=== PATIENT | female | born 1975 | race Caucasian/White ===

== ENCOUNTER 2022-02-19 03:59 | Inpatient (IN) | payer MEDICAID ==
[~2022-02-19] VITALS: Ht 160 cm; Wt 65.3 kg
[2022-02-19 05:09] LABS: BASOPHILS % 0.6 % (0.0-2.0); EOSINOPHILS % 0.7 % (0.0-5.0); HEMATOCRIT. 42.8 % (36.0-48.0); HEMOGLOBIN. 14.2 g/dL (12.0-16.0); MEAN CORPUSCULAR HEMOGLOBIN 29.2 pg (28.0-32.0); MEAN CORPUSCULAR VOLUME 87.8 fL (81.0-99.0); MEAN PLATELET VOLUME 8.5 fl (7.4-10.4); MONOCYTES % 6.6 % (2.0-8.0); NEUTROPHILS % 76.1 % (40.0-76.0); PLATELET 224 x1000/uL (130-400); RED BLOOD CELL COUNT 4.88 mill/uL (4.2-5.4); RED CELL DISTRIBUTION WIDTH 14.4 % (11.6-14.6)
[2022-02-19 05:21] LABS: CHLORIDE 101 mEq/L (98-107)
[2022-02-19 05:36] LABS: ETHANOL BLOOD < 10 mg/dL
[2022-02-19] MEDS ORDERED: ACETAMINOPHEN 325MG TABLET PO STA (05:54)
[2022-02-19 06:44] LABS: CLARITY URINE CLEAR (CLEAR); COLOR URINE YELLOW (YELLOW); KETONES URINE NEGATIVE (NEGATIVE); LEUKOCYTE ESTERASE URINE NEGATIVE (NEGATIVE); NITRITE URINE NEGATIVE (NEGATIVE); OCCULT BLOOD URINE 1+ (NEGATIVE); PH URINE 5.5 (4.5-8.0); PROTEIN URINE TRACE (NEGATIVE); SPECIFIC GRAVITY URINE 1.018 (1.005-1.030); UROBILINOGEN URINE 0.2 E.U./dL (0.2-1.0)
[2022-02-19] MEDS ORDERED: LEVETIRACETAM 1000MG PREMIX 100 ML IV ONE (07:30)
[2022-02-19 08:06] LABS: *AMPHETAMINES SCREEN URINE NEGATIVE (NEGATIVE); *BARBITURATES SCREEN URINE NEGATIVE (NEGATIVE); *BENZODIAZEPINES SCREEN URINE NEGATIVE (NEGATIVE); *COCAINE SCREEN URINE NEGATIVE (NEGATIVE); CANNABINOID URINE SCREEN NEGATIVE (NEGATIVE); METHADONE URINE SCREEN NEGATIVE (NEGATIVE); OPIATES URINE SCREEN NEGATIVE (NEGATIVE); PHENCYCLIDINE URINE SCREEN NEGATIVE (NEGATIVE)
[2022-02-19] MEDS ORDERED: ONDANSETRON HCL 4MG/2ML INJ IV ONE (08:15)
[2022-02-19] MEDS ORDERED: ONDANSETRON HCL 4MG/2ML INJ IV PRN (11:45)
[2022-02-19] MEDS ORDERED: CLONIDINE 0.1MG TABLET PO PRN (11:45)
[2022-02-19] MEDS ORDERED: MAGNESIUM/ALUMINUM HYDROXIDE/SIMETHICONE 30ML UDC PO PRN (11:45)
[2022-02-19] MEDS ORDERED: IPRATROPIUM/ALBUTEROL 0.5-3(2.5)MG/3ML NEB NEB PRN (11:45)
[2022-02-19] MEDS ORDERED: ACETAMINOPHEN 325MG TABLET PO PRN (11:45)
[2022-02-19] MEDS ORDERED: GUAIFENESIN 200MG/10ML SUGAR FREE UDC PO PRN (11:45)
[2022-02-19] MEDS ORDERED: NA PHOS,M-B/NA PHOS,DI-BA ENEMA 118ML PR PRN (11:45)
[2022-02-19] MEDS ORDERED: DIPHENHYDRAMINE 50MG/ML VIAL IV PRN (11:45)
[2022-02-19] MEDS ORDERED: DOCUSATE SODIUM 100MG CAPSULE PO PRN (11:45)
[2022-02-19] MEDS ORDERED: NALOXONE HCL 0.4MG/ML VIAL IV PRN (12:15)
[2022-02-19 13:00] VITALS: BP 123/71
[2022-02-19] MEDS: HYDROCODONE/ACETAMINOPHEN 5/325MG TABLET PO PRN ×2 (15:56→21:00)
[2022-02-19 16:00] VITALS: BP 116/66
[2022-02-19 19:08] LABS: CHLORIDE 103 mEq/L (98-107)
[2022-02-19 20:00] VITALS: BP 143/87
[2022-02-19] MEDS: LEVETIRACETAM 500MG TABLET PO SCH (21:00)
[2022-02-20] VITALS: BP 134/66
[2022-02-20 04:00] VITALS: BP 106/63
[2022-02-20 07:05] LABS: BASOPHILS % 0.6 % (0.0-2.0); EOSINOPHILS % 0.4 % (0.0-5.0); HEMATOCRIT. 40.6 % (36.0-48.0); HEMOGLOBIN. 13.9 g/dL (12.0-16.0); LYMPHOCYTES % 19.7 % (20.0-50.0); MEAN CORPUSCULAR HEMOGLOBIN 29.8 pg (28.0-32.0); MEAN CORPUSCULAR VOLUME 86.9 fL (81.0-99.0); MEAN PLATELET VOLUME 8.6 fl (7.4-10.4); MONOCYTES % 7.2 % (2.0-8.0); NEUTROPHILS % 72.1 % (40.0-76.0); PLATELET 161 x1000/uL (130-400); RED BLOOD CELL COUNT 4.67 mill/uL (4.2-5.4); RED CELL DISTRIBUTION WIDTH 14.3 % (11.6-14.6)
[2022-02-20 08:04] VITALS: BP 125/84
[2022-02-20] MEDS: LEVETIRACETAM 500MG TABLET PO SCH ×2 (08:58→20:21)
[2022-02-20] MEDS: MORPHINE SULFATE 2 MG/ML CPJ (NOT FOR IM USE) IV PRN ×2 (09:06→20:23)
[2022-02-20 12:04] VITALS: BP 115/75
[2022-02-20 16:00] VITALS: BP 125/66
[2022-02-20] MEDS ORDERED: GADOTERATE MEGLUMINE 5 MMOL/10 ML VIAL IV ONE (16:59)
[2022-02-20 20:00] VITALS: BP 129/86
[2022-02-21] VITALS: BP 130/70
[2022-02-21 04:00] VITALS: BP 125/82
[2022-02-21 06:35] LABS: BASOPHILS % 0.6 % (0.0-2.0); EOSINOPHILS % 2.6 % (0.0-5.0); HEMATOCRIT. 42.9 % (36.0-48.0); HEMOGLOBIN. 14.5 g/dL (12.0-16.0); LYMPHOCYTES % 31.8 % (20.0-50.0); MEAN CORPUSCULAR HEMOGLOBIN 29.1 pg (28.0-32.0); MEAN CORPUSCULAR VOLUME 86.3 fL (81.0-99.0); MONOCYTES % 10.5 % (2.0-8.0); NEUTROPHILS % 54.5 % (40.0-76.0); PLATELET 139 x1000/uL (130-400); RED BLOOD CELL COUNT 4.98 mill/uL (4.2-5.4); RED CELL DISTRIBUTION WIDTH 14.2 % (11.6-14.6)
[2022-02-21 06:49] LABS: CHLORIDE 103 mEq/L (98-107)
[2022-02-21 08:00] VITALS: BP 122/64
[2022-02-21] MEDS: LEVETIRACETAM 500MG TABLET PO SCH (08:25)
[2022-02-21 12:00] VITALS: BP 131/83
[2022-02-21 13:21] VITALS: BP 131/83
== END 2022-02-21 13:50 | disposition home or self-care (01) | DRG 53 ==
LOC: ER 03:59 → 7WST 08:24 → ER 12:03
PROVIDERS: ADMIT Internal Medicine; ATTEND Internal Medicine
DX: R56.9 Unspecified convulsions (principal); Q28.2 Arteriovenous malformation of cerebral vessels; E86.0 Dehydration; I10 Essential (primary) hypertension; R32 Unspecified urinary incontinence
CPT/HCPCS: 36415; 70553; 80048; 80053; 80305; 80320; 81003; 84443; 84484; 85025; 86850; 86900; 99285; A9577; J1953; J2270; J2405; G0480

== ENCOUNTER 2023-10-14 18:26 | Emergency (ER) | payer SELFPAY ==
[~2023-10-14] VITALS: Ht 165.1 cm; Wt 65.0 kg
[2023-10-14 18:27] VITALS: O2SAT 96
[2023-10-14 19:09] VITALS: TEMP 97.9
[2023-10-14 19:15] LABS: BASOPHILS % 0.7 % (0.0-2.0); EOSINOPHILS % 2.2 % (0.0-5.0); HEMATOCRIT. 39.5 % (36.0-48.0); HEMOGLOBIN. 12.7 g/dL (12.0-16.0); LYMPHOCYTES % 36.5 % (20.0-50.0); MEAN CORPUSCULAR HEMOGLOBIN 27.2 pg (28.0-32.0); MEAN CORPUSCULAR HGB CONC 32.2 g/dL (31.0-37.0); MEAN CORPUSCULAR VOLUME 84.5 fL (81.0-99.0); MEAN PLATELET VOLUME 8.5 fl (7.4-10.4); MONOCYTES % 5.3 % (2.0-8.0); NEUTROPHILS % 55.3 % (40.0-76.0); PLATELET 298 x1000/uL (130-400); RED BLOOD CELL COUNT 4.67 mill/uL (4.2-5.4); RED CELL DISTRIBUTION WIDTH 14.9 % (11.6-14.6); WHITE BLOOD COUNT 13.9 x1000/uL (4.5-11.0)
[2023-10-14 19:27] LABS: ALANINE AMINOTRANSFERASE < 7 IU/L (10-49); ALBUMIN 4.6 g/dL (3.2-4.8); ASPARTATE AMINOTRANSFERASE 21 IU/L (<34); BILIRUBIN TOTAL 0.3 mg/dL (0.1-1.0); CALCIUM 8.9 mg/dL (8.7-10.4); CARBON DIOXIDE 22 mEq/L (21-32); CHLORIDE 105 mEq/L (98-107); CREATININE 0.6 mg/dL (0.6-1.0); GLUCOSE 172 mg/dL (70-105); POTASSIUM 2.9 mEq/L (3.5-5.1); PROTEIN TOTAL 8.1 g/dL (6.0-8.3); SODIUM 137 mEq/L (136-145); UREA NITROGEN BLOOD 17 mg/dL (9-23)
[2023-10-14] MEDS: ONDANSETRON HCL 4MG/2ML INJ IV ONE (19:55)
[2023-10-14 20:00] LABS: TROPONIN I HIGH SENSITIVITY < 4 ng/L (3.0-34)
[2023-10-14] MEDS: KCL 10MEQ/50ML PREMIX 50 ML IV ONE (21:00)
[2023-10-14] MEDS ORDERED: NICARDIPINE 50 MG in SODIUM CHLORIDE 0.9% 230 ML IV STA ×2 (21:07→21:51)
[2023-10-14 21:22] VITALS: PULSE 66; RESP 24
[2023-10-14] MEDS ORDERED: ETOMIDATE 2MG/ML 10ML VIAL IV ONE (21:30)
[2023-10-14] MEDS ORDERED: PROPOFOL 200MG/20ML VIAL IV ONE (21:30)
[2023-10-14] MEDS ORDERED: SUCCINYLCHOLINE CHLORIDE 200MG/10ML IV ONE (21:30)
[2023-10-14] MEDS ORDERED: NICARDIPINE 40MG/200ML PREMIX 250 ML IV STA (21:43)
[2023-10-14 21:59] VITALS: PULSE 68; RESP 23
[2023-10-14] MEDS ORDERED: PROPOFOL 10MG/ML 100ML 100 ML IV ONE (22:00)
[2023-10-14 22:24] VITALS: BP 147/88; PULSE 87; RESP 28
[2023-10-14 22:26] LABS: INR 0.9; PARTIAL THROMBOPLASTIN TIME 23.7 sec (23.4-31.0); PROTHROMBIN TIME 10.3 sec (9.6-11.0)
[2023-10-14] MEDS: LEVETIRACETAM 1000MG PREMIX 100 ML IV ONE (22:41)
== END 2023-10-14 22:36 | disposition short-term general hospital (02) ==
LOC: ER 18:26
DX: I62.9 Nontraumatic intracranial hemorrhage, unspecified (principal); R11.10 Vomiting, unspecified; Z86.73 Personal history of transient ischemic attack (TIA), and cerebral infarction without residual deficits
CPT/HCPCS: 80053; 82962; 83880; 85025; 85610; 85730; 84484; 36415; 71045; 70450; 31500; 93005; 96361; 96365; 96375; 99285; Z7610 ×11; J1953; J3490; J2405; J3480; J2704; J7050; 94002